=== PATIENT | male | born 1940 | race Caucasian/White ===

== ENCOUNTER 2019-12-09 19:13 | Emergency (ER) | payer MEDICARE, OTHER ==
[~2019-12-09] VITALS: Ht 172.7 cm; Wt 51.7 kg
[~2019-12-09 19:13] MED LIST: ALBU2.5V5 INH; ALBU3IS INH; ALBUIS INH; AMLO10 PO; Augmentin 875-1 EACH PO; CEPACOL SORE T1 EACH MM; FURO20 PO; Florastor250 MG PO; K-TAB ER20 MEQ PO; MAGOXI400 PO; MUCUS RELIEF600 MG PO; OMEPRAZOLE MAGN20 MG PO; PRED10 PO; SODCHL1 PO; SPIRIVA RESPIMAT4 GM IH; STIOLTO RESPIMAT4 GM INH; TAMS.4ER PO; THERA TABLET400 MCG PO; TIOT18 INH; TIZANIDINE HCL2 MG PO
[2019-12-09 20:02] LABS: BASOPHILS ABSOLUTE AUTO 0.05 K/mm3 (0.00-0.23); BASOPHILS PERCENT AUTO 1 % (0-2); EOSINOPHILS ABSOLUTE AUTO 0.05 K/mm3 (0.00-0.68); EOSINOPHILS PERCENT AUTO 1 % (0-6); Hematocrit 34.9 % (37.0-53.0); Hemoglobin 11.6 g/dL (13.5-17.5); IMMATURE GRAN ABSOLUTE AUTO 0.03 K/mm3 (0.00-0.10); IMMATURE GRAN PERCENT AUTO 0 % (0-1); LYMPHOCYTES ABSOLUTE AUTO 0.88 K/mm3 (0.84-5.20); LYMPHOCYTES PERCENT AUTO 11 % (21-46); MONOCYTES ABSOLUTE AUTO 0.87 K/mm3 (0.16-1.47); MONOCYTES PERCENT AUTO 11 % (4-13); Mean Corpuscular HGB 30.2 pg (26.0-34.0); Mean Corpuscular HGB Conc 33.2 g/dL (31.5-36.5); Mean Corpuscular Volume 91 fL (80-100); Mean Platelet Volume 9.4 fL (9.1-12.4); NEUTROPHILS ABSOLUTE AUTO 6.32 K/mm3 (1.96-9.15); NEUTROPHILS PERCENT AUTO 77 % (41-73); Platelet Count 251 K/mm3 (150-400); RDW Coefficient Variation 13.4 % (11.7-14.2); RDW Standard Deviation 45.2 fL (35.1-46.3); Red Blood Cell Count 3.84 M/mm3 (4.30-5.90)
[2019-12-09 20:26] LABS: Alanine Aminotransfer (ALT/SGP 17 U/L (12-78); Albumin, Blood 2.8 g/dL (3.4-5.0); Albumin/Globulin Ratio 0.7 (0.8-1.8); Alk Phos 142 U/L (50-136); Anion Gap 6 mmol/L (6-16); Aspartate Aminotrans (AST/SGOT 11 U/L (12-37); Bilirubin, Total 0.4 mg/dL (0.1-1.0); Blood Urea Nitrogen 8 mg/dL (8-24); Bun/Creatinine Ratio 13.4 (12.0-20.0); CO2, Blood 29 mmol/L (21-32); Calcium, Blood 7.7 mg/dL (8.5-10.1); Chloride, Blood 96 mmol/L (98-108); Globulin, Blood 3.9 g/dL (2.2-4.0); Glomerular Filtration Rate >60 (60-); Glucose, Blood 94 mg/dL (70-99); Potassium, Blood 3.7 mmol/L (3.5-5.5); Sodium, Blood 131 mmol/L (136-145); Total Protein, Blood 6.7 g/dL (6.4-8.2); Troponin I <0.015 ng/mL (0.000-0.040)
== END 2019-12-09 22:09 | disposition home or self-care (01) ==
LOC: ER 19:13
PROVIDERS: Emergency Medicine
DX: J44.1 Chronic obstructive pulmonary disease with (acute) exacerbation (principal); I10 Essential (primary) hypertension; K21.9 Gastro-esophageal reflux disease without esophagitis; N40.0 Benign prostatic hyperplasia without lower urinary tract symptoms; Z88.8 Allergy status to other drugs, medicaments and biological substances; Z79.899 Other long term (current) drug therapy; Z79.2 Long term (current) use of antibiotics; Z87.891 Personal history of nicotine dependence
CPT/HCPCS: 71045; 80053; 83880; 84145; 84484; 85025; 86140; 93005; 93010; 99285-25

== ENCOUNTER 2020-01-24 17:44 | Inpatient (IN) | payer MEDICARE, OTHER ==
[~2020-01-24] VITALS: Ht 170.2 cm; Wt 53.4 kg
[2020-01-24 18:36] LABS: PCO2 Arterial 39.7 mmHg (35-45); PO2 Arterial 126 mmHg (80-100); pH Blood Arterial 7.45 (7.35-7.45)
[2020-01-24 18:40] LABS: BASOPHILS ABSOLUTE AUTO 0.04 K/mm3 (0.00-0.23); BASOPHILS PERCENT AUTO 1 % (0-2); EOSINOPHILS ABSOLUTE AUTO 0.03 K/mm3 (0.00-0.68); EOSINOPHILS PERCENT AUTO 0 % (0-6); Hematocrit 38.2 % (37.0-53.0); Hemoglobin 12.4 g/dL (13.5-17.5); IMMATURE GRAN ABSOLUTE AUTO 0.02 K/mm3 (0.00-0.10); IMMATURE GRAN PERCENT AUTO 0 % (0-1); LYMPHOCYTES ABSOLUTE AUTO 1.02 K/mm3 (0.84-5.20); LYMPHOCYTES PERCENT AUTO 14 % (21-46); MONOCYTES ABSOLUTE AUTO 0.69 K/mm3 (0.16-1.47); MONOCYTES PERCENT AUTO 9 % (4-13); Mean Corpuscular HGB 29.8 pg (26.0-34.0); Mean Corpuscular HGB Conc 32.5 g/dL (31.5-36.5); Mean Corpuscular Volume 92 fL (80-100); Mean Platelet Volume 10.6 fL (9.1-12.4); NEUTROPHILS ABSOLUTE AUTO 5.75 K/mm3 (1.96-9.15); NEUTROPHILS PERCENT AUTO 76 % (41-73); Platelet Count 251 K/mm3 (150-400); RDW Coefficient Variation 13.9 % (11.7-14.2); RDW Standard Deviation 47.2 fL (35.1-46.3); Red Blood Cell Count 4.16 M/mm3 (4.30-5.90); White Blood Cell Count 7.55 K/mm3 (4.00-11.30)
[2020-01-24 18:54] LABS: D-Dimer, Quantitative 0.6 mg/L FEU (0.00-0.52)
[2020-01-24 18:57] LABS: Alanine Aminotransfer (ALT/SGP 13 U/L (12-78); Albumin, Blood 2.6 g/dL (3.4-5.0); Albumin/Globulin Ratio 0.7 (0.8-1.8); Alk Phos 154 U/L (50-136); Anion Gap 4 mmol/L (6-16); Aspartate Aminotrans (AST/SGOT 13 U/L (12-37); Bilirubin, Total 0.7 mg/dL (0.1-1.0); Blood Urea Nitrogen 9 mg/dL (8-24); Bun/Creatinine Ratio 16.4 (12.0-20.0); CO2, Blood 32 mmol/L (21-32); Calcium, Blood 7.8 mg/dL (8.5-10.1); Chloride, Blood 99 mmol/L (98-108); Creatinine, Blood 0.55 mg/dL (0.60-1.20); Globulin, Blood 3.7 g/dL (2.2-4.0); Glomerular Filtration Rate >60 (60-); Glucose, Blood 99 mg/dL (70-99); Potassium, Blood 3.2 mmol/L (3.5-5.5); Sodium, Blood 135 mmol/L (136-145); Total Protein, Blood 6.3 g/dL (6.4-8.2); Troponin I <0.015 ng/mL (0.000-0.040)
[2020-01-24] MEDS ORDERED: AMLODIPINE BESY10 MG PO (19:13)
[2020-01-24] MEDS ORDERED: Potassium Chlo20 ME1 PO (19:13)
[2020-01-24] MEDS ORDERED: OMEP20ER PO ×2 (19:13→20:15)
[2020-01-24] MEDS ORDERED: TRAM50 PO ×2 (19:14→20:16)
[2020-01-24] MEDS ORDERED: SPIRIVA RESPIMAT4 G3 INH ×2 (19:14→20:15)
[2020-01-24] MEDS ORDERED: Ventolin/Prove6.7 GM INH (19:14)
[2020-01-24] MEDS ORDERED: FOLI1 PO (20:14)
[2020-01-24] MEDS ORDERED: MULTI VITAMIN1 EACH PO (20:15)
[2020-01-24] MEDS ORDERED: POTCHL20ER PO (20:15)
[2020-01-24] MEDS ORDERED: ALBU3IS INH ×2 (20:16→23:56)
[2020-01-24 21:33] LABS: Magnesium, Blood 1.6 mg/dL (1.6-2.4)
[2020-01-24 21:44] LABS: International Normalized Ratio 1.09; Prothrombin Time Results 11.6 Sec (9.7-11.5)
--- NOTE | 2020-01-24 23:00 | NUR ---
ASSUMED CARE NOTE: ASSUMED CARE OF PT AT 2240, RECEVIED REPORT FROM [facility] RN. PT RESPONDS TO PAINFUL STIMULI. PT DOES NOT HAVE ANY SEDATION RUNNING AT THE MOMENT. PT IS VENTED WITH SETTINGS AT AC18/400/5/25%, FiO2 96% LUNG SOUNDS ARE DIM T/O, NO SPUTUM NOTED WHEN SUCTIONED. PT IN A-FLUTTER, HR IN THE 130'S. PT ON LEVOPHED AT 8MCG/MIN. AMNIO RUNNING AT 1MG/MIN, STOPPED ON ARRIVAL. BP STABLE AT THE MOMENT. BILAT RADIAL AND PEDAL PULSES FOUND WITH DOPPLER. TEMP COFFMAN READING 93.0, TEMPORAL TEMP READING 96.0, WARM BLANKETS APPLIED. DR. PRAKASH ON HIS WAY TO PLACE A CENTRAL LINE.
[2020-01-24] MEDS ORDERED: ACET500 PO (23:45)
[2020-01-24] MEDS ORDERED: BAZA CREAM (23:47)
[2020-01-24] MEDS ORDERED: BISA10S PR (23:48)
[2020-01-24] MEDS ORDERED: BISM300CH PO (23:49)
[2020-01-24] MEDS ORDERED: Fleet Glycerin1 EACH PR (23:53)
[2020-01-24] MEDS ORDERED: BENMENLOZ PO (23:54)
[2020-01-24] MEDS ORDERED: IPRAT-ALBUT 0.5-3 ML INH (23:54)
[2020-01-24] MEDS ORDERED: Milk Of Ma400 MG/5 M PO (23:55)
--- NOTE | 2020-01-25 01:00 | NUR ---
2330: DR. PRAKASH AT BEDSIDE. PT NOW ON 30MCG/KG/MIN OF PROPOFOL FOR SEDATION, PT MOVING AROUND IN BED. PHYSICAN ORDERED 1MG OF VERSED FOR ADDED SEDATION FOR PROCEDURE. PLACED PT IN [place] POSITION FOR CENTRAL LINE PLACEMENT, BP THEN DECREASED, LEVOPHED TITRATED TO 30MCG/MIN PER ORDER. FIRST ATTEMPT OF CENTRAL LINE PLACEMENT UNSUCCESSFUL. UNABLE TO OBTAIN BP AT 0013. FEMORAL PULSE CAN BE FELT. CENTRAL LINE PLACEMENT TO RIGHT IJ SUCCESSFUL. X-RAY ORDERED. HEAD OF BED WAS PLACED AT 30 DEGREES, BP INCREASED, LEVOPHED TITRATED DOWN. PT'S TEMP CONTINUES TO READ LOW, BEAR HUGGER APPLIED. ORDERED FOR AMIO TO BE RESTARTED AT 1MG/MIN. WILL CONTINUE TO MONITOR PT.
[2020-01-25 02:13] LABS: BASOPHILS ABSOLUTE AUTO 0.02 K/mm3 (0.00-0.23); BASOPHILS PERCENT AUTO 0 % (0-2); EOSINOPHILS ABSOLUTE AUTO 0.02 K/mm3 (0.00-0.68); EOSINOPHILS PERCENT AUTO 0 % (0-6); Hematocrit 36.8 % (37.0-53.0); Hemoglobin 12.2 g/dL (13.5-17.5); IMMATURE GRAN ABSOLUTE AUTO 0.07 K/mm3 (0.00-0.10); IMMATURE GRAN PERCENT AUTO 1 % (0-1); LYMPHOCYTES ABSOLUTE AUTO 0.86 K/mm3 (0.84-5.20); LYMPHOCYTES PERCENT AUTO 9 % (21-46); MONOCYTES ABSOLUTE AUTO 0.57 K/mm3 (0.16-1.47); MONOCYTES PERCENT AUTO 6 % (4-13); Mean Corpuscular HGB 30.4 pg (26.0-34.0); Mean Corpuscular HGB Conc 33.2 g/dL (31.5-36.5); Mean Corpuscular Volume 92 fL (80-100); Mean Platelet Volume 10.2 fL (9.1-12.4); NEUTROPHILS ABSOLUTE AUTO 7.96 K/mm3 (1.96-9.15); NEUTROPHILS PERCENT AUTO 84 % (41-73); Platelet Count 219 K/mm3 (150-400); RDW Coefficient Variation 13.7 % (11.7-14.2); RDW Standard Deviation 46.6 fL (35.1-46.3); Red Blood Cell Count 4.01 M/mm3 (4.30-5.90)
[2020-01-25 02:37] LABS: Alanine Aminotransfer (ALT/SGP 21 U/L (12-78); Albumin, Blood 2.2 g/dL (3.4-5.0); Albumin/Globulin Ratio 0.7 (0.8-1.8); Alk Phos 167 U/L (50-136); Anion Gap 7 mmol/L (6-16); Aspartate Aminotrans (AST/SGOT 27 U/L (12-37); Bilirubin, Total 1.5 mg/dL (0.1-1.0); Blood Urea Nitrogen 10 mg/dL (8-24); Bun/Creatinine Ratio 14.4 (12.0-20.0); CO2, Blood 26 mmol/L (21-32); CPK Creatine Kinase 66 U/L (39-308); Calcium, Blood 7.2 mg/dL (8.5-10.1); Chloride, Blood 99 mmol/L (98-108); Glomerular Filtration Rate >60 (60-); Glucose, Blood 265 mg/dL (70-99); Potassium, Blood 4.5 mmol/L (3.5-5.5); Sodium, Blood 132 mmol/L (136-145); Total Protein, Blood 5.2 g/dL (6.4-8.2); Troponin I 0.038 ng/mL (0.000-0.040)
--- NOTE | 2020-01-25 03:58 | NUR ---
UPDATE: PT IS ON 20MCG/KG/MIN OF PROPOFOL, GAG REFLEX AND COUGH PRESENT. HAVING DIFFICULTIES OBTAINING BP ON BILARM ARMS. BP CUFF SWITCHED TO LLE, READING 80/50, MAP 70'S . LEVOPHED AT 12MCG/MIN, VASOPRESSIN AT 0.04 U/HR. COFFMAN TEMP IS NOW READING 96.3
--- NOTE | 2020-01-25 05:58 | NUR ---
UPDATE: UNABLE TO OBTAIN PT'S MANUAL BP, MONITOR UNABLE TO READ. PULSES CAN BE FELT. CVP 16, LEVOPHED TURNED UP TO 30MCG/MIN, PHYSICAN AWARE. CALLED REGARDING STATUS, ORDERS TO GIVE 500ML NS BOLUS GIVEN. TEMP IS CURRENTLY 97.9, BEAR HUGGER TURNED OFF.
--- NOTE | 2020-01-25 06:12 | NUR ---
SHIFT SUMMARY: PT CONTINUES TO BE VENTED, SETTINGS AT AC18/450/5/25%, SPO2 AT 100% PT IS IN SR WITH PVC'S HR AT 112. LEVOPHED AT 25MCG/MIN, VASO AT 0.04MCG/HR 500ML NS BOLUS BEING DELIVERED NOW. CVP IS 16. PT IS PALE, AND MOTTLED IN BLE. PROPOFOL AT 5MCG/KG/MIN. PT IS NOT RESPONDING TO PAINFUL OR VERBAL STIMULI. PT HAS A GAG REFLEX. PULSES CAN BE FELT BILAT TO RADIAL PULSES, FAINT. OG TO LIS, GREEN DRAINAGE NOTED. COFFMAN IS PATENT AND DRAINING JO-ANN COLORED URINE, 250ML FOR URINE OUTPUT. K+ and MAG REPLACED THIS SHIFT.
--- NOTE | 2020-01-25 06:51 | NUR ---
AT BEDSIDE, INFORMED HIM THAT BP IS STILL CONTINUING TO BE DIFFICULT TO OBTAIN, LEVO IS AT 25MCG/MIN. PROPOFOL RESARTED AT 10MCG/KG/MIN DUE TO PT BEING UNABLE TO TOLERATE VENT. ORDERS FOR CRITICAL CARE CONSULT GIVEN, AND TO DELIVER ANOTHER 500ML NS BOLUS.
--- NOTE | 2020-01-25 09:10 | NUR ---
PT INTUBATED AND SEDATED WITH PROPOFOL. PT WILL GRIMACE TO PAIN AND WITHDRAWLS FEET FROM NOXIOUS STIMULI. ON LEVOPHED GTT AT 30MCG/MIN AND VASOPRESSIN. DR. NIXON IN TO SEE PT AND ORDERED ANOTHER BOLUS OF NS. ECHO WAS DONE THIS AM. SKIN IS PALE T/O, FRAIL, AND DUSKY. SOME MOTTLING AROUND KNEE CAPS. SKIN IS WARM TO TOUCH. PT HAS RAISED BREASTS THAT APPEAR TO HAVE SCAR TISSUE. HAS DRESSING OVER L NECK WHERE FIRST ATTEMPT OF CENTAL LINE WAS. PT HAS A CENTRAL LINE TO RIJ. SEE FLOWSHEET FOR TITRATIONS.
--- NOTE | 2020-01-25 11:09 | NUR ---
Spoke with ICU service porter Angela and discussed case. Angela reports Pt is maxed out on 2 pressors and a 3rd pressor will be given. Pt has no NOK listed or decision makers listed. Pt resting in bed and in intubated. Spoke with bedside RN and discussed case. Called and spoke with Argelia at [facility]. Argelia reports Pt does not have POLST or NOK listed. Spoke with [employer] Associate Kenya and discussed case. Kenya provides POLST completed in 2018. Spoke with [employer] and spoke with casemanager of the day Shannon. Pt's normal casemanager Larry is out until Tuesday. Shannon provides contact information for Pt that is listed as Client Rep with the name of Constanza David. Constanza Hernandez [phone] Called and spoke with Constanza. Constanza reports being friend of Pt since 2002. Listened as Constanza reports buying property in 2002 that the Pt lived on and since has been active in Pt's life. Constanza reports she has been working with Pt on getting him placed in [facility]. Pt has not been happy living at [facility]. She last spoke with Pt approximately 3 days ago. Constanza reports assisting Pt with obtaining prescritpions and doctor appointments. Listened as Constanza discusses the passing of her in June of this year. This event triggard a conversation with Pt of his wishes for life sustaining measures. Constanza reports Pt told her that he would not want heroic measures including CPR and intubation. Constanza reports that she is willing to be Pt's decision maker if needed. Pt has been estranged from family since his early 20's and every time conversation is brought up regarding attempting to locate family Pt's becomes angry. Pt is not wanting to be involved with blood relatives. Spoke with Alfredo Comer from [employer]. Discussed case and concerns. Alfredo reports we can provide information as needed to friend Constanza and Constanza would be appropriate to be decision maker as needed. Alfredo also reports in the event if Pt's condition declines and withdrawel of care needs to be considered, Pt's [employer] worker will need to be notified. Pt's [employer] worker is Larry Willett [phone]. Palliative Care will remain available.
[2020-01-25 11:39] LABS: Troponin I 0.106 ng/mL (0.000-0.040)
--- NOTE | 2020-01-25 14:05 | NUR ---
TRICKLE TUBE FEED STARTED PER DR. NIXON ORDERS.
--- NOTE | 2020-01-25 15:31 | NUR ---
UPDATE PT IS INTUBATED, USING VERSED IVP FOR SEDATION. TAKEN OFF OF PROPOFOL DUE TO LOW BP. PT WILL WAKE AT TIMES FIGHTING THE VENT AND RESTRAINTS BUT DOES NOT FOLLOW COMMANDS. BP HAS BEEN LOW ALL DAY DESPITE LEVOPHED, DOBUTAMINE, AND VASOPRESSIN. DR. NIXON AWARE OF DECREASED UO. SEE FLOWSHEET FOR TITRATIONS. NEXT OF KIN KAVITHA, THAT IS A LONG TIME FRIEND, WAS CONTACTED AND SHE IS HERE TALKING WITH DR. NIXON ABOUT PLAN OF CARE AND PT'S WISHES. PALLIATIVE CARE IS ALSO WITH KAVITHA TO HELP WITH ANY DECISIONS AND ANSWER QUESTIONS.
--- NOTE | 2020-01-25 16:51 | NUR ---
Upon receiving a call-back, I visit with patient's friend, Felisha. Felisha informs me that patient is not congregation but believes in God. She asks if I could pray for patient. I put on proper PPEs and enter patient's rm and provide prayer for patient commiting him into God's care. I then spend time with Felisha conducting a life review of patient and providing grief support as she also shares about the of her approx. 6 mos ago. As I prepare to leave Felisha makes plans to exit.
--- NOTE | 2020-01-25 17:09 | NUR ---
Received call from Bedside RN Thuy reporting Pt's decision maker Constanza is requesting a visit from Palliative Care. Met with Constanza outside of ICU and engaged in therapeutic listening. Answered questions and listened to concerns. Dr Reddy arrives and discusses case with Constanza including prognosis. Goals of care discussed. Listened as Constanza reports Pt would not want to be intubated. Constanza discusses the topic regarding the possibility of Pt having cancer. Lois states Pt would not pursue treatment even if he was a candidate for treatment. Constanza reports Pt would want to withdraw care at this time. Dr Reddy is in agreement to withdraw care. Continued therapeutic listening. Called and spoke with Dr Forbes. Discussed case and plan to withdraw care. Dr Forbes is also in agreement. Called and left message with [employer] worker of the day Shannon Ledbetter of intentions to withdraw care. Spoke with Margarita Valente and discussed case. Placed order for comfort care, comfort care order set inlcuding extubation, and D/C maintenance medications per V/O from Dr Reddy. Nursing Assistant Sales Manager Malika calls operations associate Chaplain Kuhn for spiritual support per request from decision maker. [place] Floor Installer Tim provides prayer for Pt. This RN and [employer] Floor Installer provide emotional support to Sandra. Pt extubated and appears comfortable. Constanza reports Pt would want [facility]. Constanza reports Pt should have money left in his account to help pay for cost. Constanza will contact Pt's [employer] worker regarding this. Continued supportive visit until Constanza leaves. Instructed Constanza staff will contact her when Pt expires. Constanza expresses appreciation of support and reports no other concerns at this time. Spoke with Bedside RN and discussed case. Pt appears comfortable with no S/S of distress at this time. Notified ICU store mgr Stacey of choice for [facility]. Palliative Care will remain available.
--- NOTE | 2020-01-25 17:25 | NUR ---
AT 1620 PT WAS EXTUBATED AND ALL PRESSORS TURNED OFF PER NEXT OF KIN KAVITHA. PER KAVITHA PT WOULD NOT WANT TO BE ON LIFE SUPPORT. ANITA TRUCK SAFETY INSPECTOR CAME IN AND SAID A PRAYER FOR PT AND ALL CARE WAS REMOVED. GAVE VERSED AND MORPHINE FOR COMFORT. AMEE FROM PALLIATIVE CARE STAYED WITH KAVITHA AND ANSWERED QUESTIONS AND OFFERED SUPPORT. CONTINUING TO MONITOR FOR DISCOMFORT. KAVITHA WENT HOME.
--- NOTE | 2020-01-25 17:39 | NUR ---
PT AT 5390
== END 2020-01-25 17:32 | DRG 208 ==
LOC: ER 17:44 → ICUW 22:28
PROVIDERS: Emergency Medicine; ADMIT Internal Medicine
PROC: 0BH18EZ Insertion of Endotracheal Airway into Trachea, Via Natural or Artificial Opening Endoscopic (ICD-10-PCS; 2020-01-24)
PROC: 5A1935Z Respiratory Ventilation, Less than 24 Consecutive Hours (ICD-10-PCS; 2020-01-24)
PROC: 02HV33Z Insertion of Infusion Device into Superior Vena Cava, Percutaneous Approach (ICD-10-PCS; principal; 2020-01-25)
PROC: 3E043XZ Introduction of Vasopressor into Central Vein, Percutaneous Approach (ICD-10-PCS; 2020-01-25)
DX: C34.91 Malignant neoplasm of unspecified part of right bronchus or lung (principal); J96.21 Acute and chronic respiratory failure with hypoxia; J18.9 Pneumonia, unspecified organism; R64 Cachexia; Z68.1 Body mass index [BMI] 19.9 or less, adult; I48.92 Unspecified atrial flutter; Z51.5 Encounter for palliative care; I42.9 Cardiomyopathy, unspecified; Z87.891 Personal history of nicotine dependence; Z99.81 Dependence on supplemental oxygen; E87.6 Hypokalemia; E83.42 Hypomagnesemia; N63.10 Unspecified lump in the right breast, unspecified quadrant; J43.9 Emphysema, unspecified; I10 Essential (primary) hypertension; Z20.828 Contact with and (suspected) exposure to other viral communicable diseases; F10.20 Alcohol dependence, uncomplicated
CPT/HCPCS: 31500; 31720; 36556; 36600; 51702; 71045; 71260; 80053; 82550; 82803; 82947; 83735; 83880; 84443; 84484; 85025; 85379; 85610; 87070; 87205; 93005; 93010; 93306; 94002; 94003; 94640; 94770; 96361-59; 96365-59; 96366-59; 96368; 96375-59; 96376-59; 99285-25; C1751; C9113; J0153; J0282; J0696; J1250; J1650; J1956; J2250; J2270; J2370; J2704; J3010; J3411; J3475; J3480; J7030; J7040; J7042; J7060; J7120; P9046; Q9967; U0003